=== PATIENT | male | born 1985 | race Caucasian/White ===

== ENCOUNTER 2016-05-13 14:58 | Emergency (ER) | payer BC, OTHER ==
[2016-05-13 15:40] VITALS: BP 155/87
[2016-05-13] MEDS ORDERED: Albuterol 2.5 MG/3 ML NEB.SOL* (0.083%) INH ONE (16:06)
--- NOTE | 2016-05-13 16:09 | UC ---
Respiratory Complaint HPI - HPI Summary HPI Summary: 2 weeks of increaeing SOB and wheezing, denies fever, sore throat, no hx of asthma. - History of Current Complaint Chief Complaint: UCRespiratory Stated Complaint: COUGH, AND CHEST CONGESTION Time Seen by Provider: 05/13/16 16:03 Hx Obtained From: Patient Onset/Duration: Gradual Onset, Lasting Weeks Timing: Constant Severity Initially: Moderate Severity Currently: Severe Pain Intensity: 8 Pain Scale Used: 0-10 Numeric Character: Cough: Nonproductive Aggravating Factors: Exertion, Deep Breaths, Recumbent Position Alleviating Factors: Nothing Associated Signs And Symptoms: Positive: Wheezing - Risk Factors Pulmonary Embolism Risk Factors: Negative Cardiac Risk Factors: Negative Pseudomonas Risk Factors: Negative Tuberculosis Risk Factors: Negative - Allergies/Home Medications Allergies/Adverse Reactions: Allergies Allergy/AdvReac Type Severity Reaction Status Date / Time No Known Allergies Allergy Verified 05/13/16 15:40 PMH/Surg Hx/FS Hx/Imm Hx Previously Healthy: Yes Endocrine History Of: Denies: Diabetes, Thyroid Disease Cardiovascular History Of: Denies: Cardiac Disorders, Hypertension Respiratory History Of: Denies: COPD, Asthma GI/ History Of: Denies: Ulcer - Surgical History Surgical History: None - Family History Known Family History: Positive: Hypertension Negative: Respiratory Disease - Social History Alcohol Use: Daily Alcohol Amount: 1 per day Substance Use Type: None Smoking Status (MU): Former Smoker Type: Smokeless Tobacco Amount Used/How Often: 1 can per week Length of Time of Smoking/Using Tobacco: 2 years Have You Smoked in the Last Year: No When Did the Patient Quit Smoking/Using Tobacco: 2012 - Immunization History Most Recent Influenza Vaccination: denies Review of Systems Constitutional: Negative Skin: Negative Eyes: Negative ENT: Negative Respiratory: Shortness Of Breath, Cough Cardiovascular: Negative Gastrointestinal: Negative Genitourinary: Negative Motor: Negative Neurovascular: Negative Musculoskeletal: Negative Neurological: Negative Psychological: Negative All Other Systems Reviewed And Are Negative: Yes Physical Exam Triage Information Reviewed: Yes Appearance: No Pain Distress, Well-Nourished, Ill-Appearing Vital Signs: Initial Vital Signs Temp 98.2 F 05/13/16 15:35 Pulse 74 05/13/16 15:35 Resp 18 05/13/16 15:35 BP 155/87 05/13/16 15:35 Pulse Ox 98 05/13/16 15:35 Vital Signs Reviewed: Yes Eye Exam: Normal Eyes: Positive: Conjunctiva Clear ENT Exam: Normal ENT: Positive: Normal ENT inspection, Hearing grossly normal, Pharynx normal, TMs normal Dental Exam: Normal Neck exam: Normal Neck: Positive: Supple, Nontender, No Lymphadenopathy Respiratory: Positive: Chest non-tender, No respiratory distress, No accessory muscle use, Rhonchi, Wheezing, Inspiration Cardiovascular Exam: Normal Cardiovascular: Positive: RRR, No Murmur, Pulses Normal Abdominal Exam: Normal Abdomen Description: Positive: Nontender, No Organomegaly, Soft Bowel Sounds: Positive: Present Musculoskeletal Exam: Normal Musculoskeletal: Positive: Strength Intact, ROM Intact, No Edema Neurological Exam: Normal Neurological: Positive: Alert, Muscle Tone Normal Psychological Exam: Normal Skin Exam: Normal UC Diagnostic Evaluation - Laboratory O2 Sat by Pulse Oximetry: 98 Respiratory Course/Dx - Course Course Of Treatment: hx obtained, exxam performed, albuterol neb administered, improvment noted with treatment prescriptions given for treatment of bronchitis - Differential Dx/Diagnosis Differential Diagnosis/HQI/PQRI: Asthma, Bronchitis, Influenza, Laryngitis, SARS , Sinusitis Provider Diagnoses: bronchitis Discharge - Discharge Plan Condition: Stable Disposition: HOME Patient Education Materials: Acute Bronchitis (ED) Additional Instructions: take the medications as prescribed. Increase your fluid intake and rest your voice. Get plenty of rest.
== END 2016-05-13 16:55 | disposition home or self-care (01) ==
LOC: UCEAST 14:58
DX: J40 Bronchitis, not specified as acute or chronic (principal); Z87.891 Personal history of nicotine dependence
CPT/HCPCS: 99212; G0463

== ENCOUNTER 2016-05-19 07:03 | Emergency (ER) | payer BC ==
[2016-05-19 07:15] VITALS: BP 187/97
[2016-05-19] MEDS ORDERED: Fluorescein Sodium TOPICAL* 1 MG TEST ONE (07:30)
[2016-05-19] MEDS ORDERED: BSS OPTH.SOL* BTL ONE (07:30)
[2016-05-19] MEDS ORDERED: Tetracaine 0.5% OPTH.SOL 15ML* BTL ONE (07:31)
[2016-05-19] MEDS ORDERED: Erythromycin OPTH OINT* APPLIC OINT ONE (08:27)
[2016-05-19] MEDS ORDERED: Erythromycin TOPICAL GEL* 30 GM TUBE TOPICAL SCH (09:00)
--- NOTE | 2016-05-19 09:37 | UC ---
Concepcion Chandler Michael, scribed for Iraida Glass DO on 05/19/16 at 0723 . Eye Complaint HPI - HPI Summary HPI Summary: 30 y/o male comes to [facility] presenting with left eye pain that started one day ago. The pt reports that he was grinding rust off of metal, and he did not notice anything falling into his eye until after he showered later that night. The current pain is rated a 3 out of 10 on a pain assessment scale. The pt states that the left eye pain is aggravated with blinking. He also c/o photophobia, SOB, ear pain, sore throat, and a productive cough that produces a green sputum. He was dx with bronchitis 2 weeks ago, and was prescribed an Albuterol inhaler and Prednisone-40mg PO daily. 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 Now sx are as bad as they were before starting meds.The pt denies fever, chills, nasal drainage, and n/v/d. The FHx is significant for HTN. - History of Current Complaint Stated Complaint: FB IN EYE CHEST CONGESTION Hx Obtained From: Patient, Medical Records Onset/Duration: Gradual Onset, Lasting Days, Still Present Timing: Constant Severity Initially: Mild Severity Currently: Mild Pain Intensity: 3 Pain Scale Used: 0-10 Numeric Location of Injury: Other - cornea Character: Foreign Body Sensation Aggravating Factor(s): Light, Blinking Alleviating Factor(s): Nothing Associated Signs And Symptoms: Positive: Photophobia - productive cough, SOB, ear ache, and sore throat., Drainage (Clear), Vision Impairment Left - mild, if any. Negative: Vision Impairment Bilateral, Fever, Swelling Related History: Foreign Body - Risk Factors Penetrating Injury Risk Factor: Grinding - Allergies/Home Medications Allergies/Adverse Reactions: Allergies Allergy/AdvReac Type Severity Reaction Status Date / Time No Known Allergies Allergy Verified 05/19/16 07:08 PMH/Surg Hx/FS Hx/Imm Hx Previously Healthy: Yes Endocrine History Of: Denies: Diabetes, Thyroid Disease Cardiovascular History Of: Denies: Cardiac Disorders, Hypertension Respiratory History Of: Denies: COPD, Asthma GI/ History Of: Denies: Ulcer - Surgical History Surgical History: None - Family History Known Family History: Positive: Hypertension Negative: Respiratory Disease - Social History Occupation: Employed Full-time Lives: With Family Alcohol Use: Daily Alcohol Amount: 1 per day Substance Use Type: None Smoking Status (MU): Former Smoker Type: Smokeless Tobacco Amount Used/How Often: 1 can per week Length of Time of Smoking/Using Tobacco: 2 years Have You Smoked in the Last Year: No When Did the Patient Quit Smoking/Using Tobacco: 2012 - Immunization History Most Recent Influenza Vaccination: denies Review of Systems Constitutional: Negative - fever and chills Skin: Negative, Other Eyes: Eye Redness, Photophobia, Other - left eye pain-foreign body ENT: Sore Throat, Ear Ache Respiratory: Shortness Of Breath, Cough Cardiovascular: Negative Gastrointestinal: Negative - n/v/d Genitourinary: Negative Motor: Negative Neurovascular: Negative Musculoskeletal: Negative Neurological: Negative Psychological: Negative All Other Systems Reviewed And Are Negative: Yes Physical Exam Triage Information Reviewed: Yes Appearance: Well-Appearing, No Pain Distress, Well-Nourished Vital Signs: Initial Vital Signs Temp 98.1 F 05/19/16 07:10 Pulse 123 05/19/16 07:10 Resp 18 05/19/16 07:10 BP 187/97 05/19/16 07:10 Pulse Ox 98 05/19/16 07:10 Vital Signs Reviewed: Yes Eyes: Positive: Conjunctiva Inflamed, Discharge - clear ENT: Positive: Hearing grossly normal, Pharynx normal, TMs normal. Negative: Tonsillar swelling, Tonsillar exudate, Trismus, Muffled/hoarse voice Neck: Positive: Supple, Nontender Respiratory: Positive: Lungs clear, Normal breath sounds, No respiratory distress, No accessory muscle use, Expiration - prolonged Cardiovascular: Positive: RRR, No Murmur Musculoskeletal: Positive: Strength Intact Neurological: Positive: Alert, Muscle Tone Normal Psychological Exam: Normal Psychological: Positive: Age Appropriate Behavior Skin Exam: Normal - warm. dry. normal color UC Physical Exam Vital Signs On Initial Exam: Initial Vitals Temp Pulse Resp BP Pulse Ox 98.1 F 123 18 187/97 98 05/19/16 07:10 05/19/16 07:10 05/19/16 07:10 05/19/16 07:10 05/19/16 07:10 - Eye Exam Eye Exam: right eye: no evidence of infection or trauma, left eye: conjunctival inflammation, corneal abrasion - secondary to fb removal, drainage - clear, fluorescein in, increased uptake positive location - 10o'clock, bilateral eye: PERRL, cornea clear, visual field normal Visual Acuity Right Eye: 20/40 Visual Acuity Left Eye: 20/50 Visual Acuity Both Eyes: 20/40 Eye Complaint Course/Dx - Course Course Of Treatment: pt had burning with tetracaine that resolved completely shortly after instillation. - Differential Dx/Diagnosis Differential Diagnosis/HQI/PQRI: Conjunctivitis, Corneal Abrasion, Foreign Body , Penetrating Injury Provider Diagnoses: foreign boday in eye, corneal abrasion Discharge - Discharge Plan Condition: Stable Disposition: HOME Prescriptions: Azithromycin [Azithromycin 500 MG TAB] 500 mg PO DAILY #5 tab Erythromycin OPTH OINT* 1 applic LEFT EYE QID #1 tube guaiFENesin ER TAB [Mucinex*] 600 mg PO BID PRN #1 box PRN Reason: Cough Patient Education Materials: Acute Bronchitis (ED), Eye Foreign Body (ED) Referrals: No Primary Care Phys,NOPCP [Primary Care Provider] - Syed Johnson MD [Medical Doctor] - 1 Day Additional Instructions: INHALED BRONCHODILATORS: You have received a prescription for an inhaled bronchodilator -- a medication which stimulates the airways in the lung to dilate. This improves the flow of air in asthma, bronchitis, and emphysema. These medicines have some similarity to adrenaline, and can cause similar side effects: shakiness, racing heart, and a sense of nervousness. These side effects decrease with time. Contact your doctor if these side effects are severe. Do not over-use the medicine. Too-frequent use of the inhaler may make it ineffective. Call your doctor if the inhaler is not controlling your symptoms at the prescribed doses. EXPECTORANT MEDICATION: An expectorant medicine has been prescribed. This type of drug makes mucous thinner, helping the sinuses, nose, and bronchial tubes to remain free of pus and mucous. Expectorants make a cough less severe and more comfortable, and help infected sinuses drain. In general, antihistamines defeat the purpose of the expectorant by making mucous thicker. They should be avoided unless specifically recommended by your physician. AZITHROMYCIN: Azithromycin (Zithromax) is a broad spectrum antibiotic in the same class as erythromycin. It can treat a variety of bacterial infections, but is most frequently used for respiratory infections. Azithromycin is extremely long-lasting. It accumulates in body tissues and continues to kill bacteria for many days. In order to improve absorption, Azithromycin should be taken at least one hour before or two hours after a meal. It does not have the same strong tendency to upset the stomach as erythromycin and is usually very well tolerated. Patients who have had a rash or other true allergic reactions to erythromycin should not take this medication. Call if you develop gastrointestinal distress, severe diarrhea, rash, hives, itching, or shortness of breath. ANY TIME YOU TAKE AN ANTIBIOTIC, IT IS IMPORTANT TO REPLENISH THE BODY'S BALANCE OF "GOOD" BACTERIA BY EATING HIGH QUALITY CULTURED FOOD SUCH YOGURT, SAURKRAUT OR RAFI CHI AND/OR TAKING A PROBIOTIC SUPPLEMENT. ERYTHROMYCIN EYE OINTMENT This medication is used to treat certain eye infections (such as conjunctivitis) . It is also used to prevent certain eye infections in newborns. It belongs to a class of drugs known as macrolide antibiotics. Erythromycin works by stopping the growth of bacteria. This medication treats only bacterial eye infections. It will not work for other types of eye infections. Unnecessary use or misuse of any antibiotic can lead to its decreased effectiveness. How to use erythromycin ophthalmic To apply eye ointment, wash your hands first. To avoid contamination, be careful not to touch the tip of the tube or let it touch your eye, eyelid, or any other surface. Apply to the eyes only. Do not swallow or inject. Do not wear contact lenses while you are using this medication. Sterilize contact lenses according to the electrophysiologist's directions, and check with your doctor before you begin using them again. To apply eye ointments, tilt your head back, look up, and gently pull down the lower eyelid to make a pouch. Place about a half-inch (1 centimeter) strip of ointment into the pouch as directed by your doctor. Gently close the eye and roll the eyeball in all directions to spread the medication. Try not to blink and do not rub the eye. Repeat these steps for your other eye if so directed. Wipe the tip of the ointment tube with a clean tissue to remove extra medication before recapping it. Wait several minutes for your vision to clear before driving or operating machinery. The dosage is based on your medical condition and response to treatment. Do not increase your dose or use it more often than directed. If you are using another kind of eye medication (such as drops or ointments), wait at least 5 minutes before applying other medications. Use eye drops before eye ointments to allow the drops to enter the eye. Use this medication regularly in order to get the most benefit from it. To help you remember, use it at the same times each day. Continue using it for the senior erp consultant prescribed. Stopping the medication too soon may allow the bacteria to continue to grow, which may result in a return of the infection. Tell your doctor if your condition persists or worsens. FOLLOW-UP CARE: You should establish with a private physician for follow-up care. If you are unable to get a timely appointment, or if you are worsening, call us or return for re-evaluation. An additional resource available to assist in finding the appropriate physician for your health care needs is the [facility]. You may contact them by calling [phone]. The documentation as recorded by the Concepcion stern Michael accurately reflects the service I personally performed and the decisions made by me, Iraida Glass DO.
== END 2016-05-19 08:41 | disposition home or self-care (01) ==
LOC: UCEAST 07:03
DX: T15.02XA Foreign body in cornea, left eye, initial encounter (principal); S05.52XA Penetrating wound with foreign body of left eyeball, initial encounter; W31.1XXA Contact with metalworking machines, initial encounter; Z87.891 Personal history of nicotine dependence; R09.89 Other specified symptoms and signs involving the circulatory and respiratory systems
CPT/HCPCS: 99212; A9270-GY; G0463